=== PATIENT | male | born 1965 | race Caucasian/White ===

== ENCOUNTER 2018-12-13 10:01 | Day surgery (SDC) | payer OTHER ==
[~2018-12-13] VITALS: Ht 175.3 cm; Wt 93.0 kg
[2018-12-13] MEDS ORDERED: LIPITOR40 MG PO (10:13)
--- NOTE | 2018-12-13 12:21 | NUR ---
12/13/18 1221 Belia Vigil 1215 PATIENT ARRIVES TO PACU AWAKE OFF/ON. REPOSITIONS SELF TO BACK. RESP EVEN AND UNLABORED, ROOM AIR SATS >94%. PATIENT DENIES PAIN OR NAUSEA.
--- NOTE | 2018-12-15 14:06 | OR ---
[facility] [address], [place] [address] Signed DATE OF OPERATION: 12/13/2018 SURGEON: Syed Sorto MD PREOPERATIVE DIAGNOSIS: Screening colonoscopy. POSTOPERATIVE DIAGNOSIS: Sigmoid and left-sided diverticulosis. No evidence of polyps. PROCEDURE PERFORMED: Total colonoscopy to cecum with intubation of ileum. ANESTHESIA: Intravenous sedation, fentanyl 100 mcg, Versed 6 mg. 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 Lukasz Vieyra, his primary provider, for screening colonoscopy. He has no symptoms of bleeding, diarrhea, or constipation. He does have family history of polyps in his father at age 75. He is admitted at this time to undergo screening colonoscopy. He understands the risks of bleeding, infection, and perforation. FINDINGS: The prep was excellent. Complete colonoscopy was undertaken to the cecum. Intubation of the ileum was accomplished as well. He had numerous diverticula of the sigmoid and left colon, but no sign of polyps or colitis. DESCRIPTION OF PROCEDURE: The patient was brought to the endoscopy suite, placed in lateral decubitus position, given intravenous sedation to the point of slurred speech and nystagmus. Digital rectal examination was normal. An Olympus video colonoscope was passed in the rectum and manipulated throughout the colon noting diverticula of the sigmoid and left colon. Scope was ultimately advanced to the cecum. Without much effort, the ileum was able to be intubated, which showed normal mucosa. Intubation was passed about 5 to 6 cm or so. The scope was withdrawn and there were even few small diverticula of cecum. Careful withdrawal of scope showed an episodic diverticulum, but dominant diverticula are in the left and sigmoid colon. Retroflexed view of the rectum was normal. Scope was removed and the patient was taken Electronically Signed By: SYED SORTO MD 12/15/18 1406 PATIENT NAME: JARRET BACH OPERATIVE REPORT DATE OF : 69 REPORT #: [id number] PHYSICIAN: SYED SORTO MD PCP: LUKASZ VIEYRA DO REPORT IS CONFIDENTIAL AND NOT TO BE RELEASED WITHOUT AUTHORIZATION [facility] [address], [place] [address] Signed to recovery room in good condition. CONCLUDING DIAGNOSIS: Diverticulosis. No sign of polyps or colitis. PLAN: Recommend high-fiber diet. Repeat colonoscopy in 10 years, sooner if clinically indicated of course. He will return to the ongoing care of Dr. Vieyra. MD LIZ Castellanos/ARLENE /[id number] cc: Lukasz Vieyra DO Copies: LUKASZ VIEYRA DO ~ Electronically Signed By: SYED SORTO MD 12/15/18 1406 PATIENT NAME: JARRET BACH OPERATIVE REPORT DATE OF : 69 REPORT #: [id number] PHYSICIAN: SYED SORTO MD PCP: LUKASZ VIEYRA DO REPORT IS CONFIDENTIAL AND NOT TO BE RELEASED WITHOUT AUTHORIZATION
== END 2018-12-13 12:50 | disposition home or self-care (01) ==
LOC: DS 10:01 → OPS 10:01 → DS 11:00 → OPS 11:00 → DS 12:00 → OPS 12:50
PROVIDERS: Surgery
PROC: 0DJD8ZZ Inspection of Lower Intestinal Tract, Via Natural or Artificial Opening Endoscopic (ICD-10-PCS; principal; 2018-12-13 11:00)
DX: Z12.11 Encounter for screening for malignant neoplasm of colon (principal); K57.30 Diverticulosis of large intestine without perforation or abscess without bleeding; E78.5 Hyperlipidemia, unspecified; L98.9 Disorder of the skin and subcutaneous tissue, unspecified
CPT/HCPCS: 99153; G0500; J2250; J3010; J7120